=== PATIENT | female | born 1945 | race American Indian/Alaskan Native ===

== ENCOUNTER 2017-06-05 10:29 | Inpatient (IN) | payer MEDICARE ==
[2017-06-05 12:10] LABS: Albumin/Globulin Ratio 0.9 %; BUN/Creatinine Ratio 15.33; Bilirubin,Total 0.7 mg/dL (0.1-1.2); Calcium 9.2 mg/dL (8.4-10.2); Chloride 101.6 mmol/L (98-107); Potassium 4.5 mmol/L (3.6-5.0); Total Protein 8.3 g/dL (6.3-8.2)
[2017-06-05 12:13] LABS: Basophils % (Auto) 0.7 % (0.0-1.8); Eosinophils % (Auto) 0.6 % (0.0-4.3); Hematocrit 40.2 % (30.3-42.9); Hemoglobin 13.1 gm/dl (10.1-14.3); Mean Corpuscular HGB Conc 33 % (30-34); Mean Corpuscular Hemoglobin 28 pg (28-32); Mean Corpuscular Volume 86 fl (79-97); Platelet Count 111 K/mm3 (140-440); Red Cell Distribution Width 15.3 % (13.2-15.2); White Blood Count 6.2 K/mm3 (4.5-11.0)
--- NOTE | 2017-06-05 19:24 | Emergency Department Report ---
HPI - General Chief Complaint: Upper Respiratory Infection Time Seen by Provider: 06/05/17 19:08 - HPI HPI: Room 6 The patient is a 71-year-old female presenting with chief complaint of URI symptoms and chest pain. The patient is currently at the [facility] for detox from morphine and Xanax. The patient states she originally came to the ED for evaluation of her cold like symptoms and diabetic neuropathy pain. The patient states for the past 4 days she's had body aches chills or cough productive of yellow sputum and rhinorrhea. Patient also complains of pain and numbness in both feet from her diabetic neuropathy making it difficult to walk. The patient states she attempted to elope secondary to prolonged wait time and [place] she developed exertional left-sided chest pain described as sharp in nature associated with shortness of breath and diaphoresis. Patient denies nausea or vomiting. The patient states she still having chest pain and uses a score of 10/10. Patient has a history of a CABG approximately 2 years ago Location: [see above] Duration: [see above] Quality: Sharp Severity: 10/10 Modifying factors: [see above] Context: [see above] Mode of transportation: [not driving] ED Past Medical Hx - Past Medical History Previous Medical History?: Yes Hx Hypertension: Yes Hx Heart Attack/AMI: Yes (CABG) Hx Diabetes: Yes - Surgical History Past Surgical History?: Yes Additional Surgical History: hernia; CABG - Family History Family history: no significant - Social History Smoking Status: Current Every Day Smoker (1/2 pack per day) Substance Use Type: Prescribed, Other (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) - Medications Home Medications: Home Medications Medication Instructions Recorded Confirmed Last Taken Type Unobtainable 06/05/17 06/05/17 Unknown History ED Review of Systems ROS: Stated complaint: COUGH/WEAKNESS Other details as noted in HPI Comment: All other systems reviewed and negative Constitutional: diaphoresis Eyes: denies: eye pain, eye discharge, vision change ENT: denies: ear pain, throat pain Respiratory: cough, shortness of breath Cardiovascular: chest pain Endocrine: no symptoms reported Gastrointestinal: denies: abdominal pain, nausea, diarrhea Genitourinary: denies: urgency, dysuria, discharge Musculoskeletal: denies: back pain, joint swelling, arthralgia Skin: denies: rash, lesions Neurological: denies: headache, weakness, paresthesias Psychiatric: denies: anxiety, depression Hematological/Lymphatic: denies: easy bleeding, easy bruising Physical Exam - Physical Exam Vital Signs: Vital Signs 06/05/17 06/05/17 06/05/17 10:36 10:43 19:09 Temperature 97.5 F L 97.5 F L Pulse Rate 78 78 80 Respiratory 16 16 Rate Blood Pressure 169/100 Blood Pressure 169/100 159/86 [Right] O2 Sat by Pulse 97 100 Oximetry Physical Exam: GENERAL: The patient is well-developed well-nourished female lying on stretcher not appearing to be in acute distress. [] HEENT: Normocephalic. Atraumatic. Extraocular motions are intact. Patient has moist mucous membranes. NECK: Supple. Trachea midline CHEST/LUNGS: Clear to auscultation. There is no respiratory distress noted. HEART/CARDIOVASCULAR: Regular. There is no tachycardia. There is no gallop rub or murmur. ABDOMEN: Abdomen is soft, nontender. Patient has normal bowel sounds. There is no abdominal distention. SKIN: There is no rash. There is no edema. There is no diaphoresis. NEURO: The patient is awake, alert, and oriented. The patient is cooperative. The patient has normal speech MUSCULOSKELETAL: There is no evidence of acute injury. ED Course Vital Signs 06/05/17 06/05/17 06/05/17 10:36 10:43 19:09 Temperature 97.5 F L 97.5 F L Pulse Rate 78 78 80 Respiratory 16 16 Rate Blood Pressure 169/100 Blood Pressure 169/100 159/86 [Right] O2 Sat by Pulse 97 100 Oximetry ED Medical Decision Making - Lab Data Result diagrams: 06/05/17 11:22 06/05/17 11:22 Laboratory Tests 06/05/17 06/05/17 06/05/17 10:43 11:22 11:22 WBC 6.2 RBC 4.70 Hgb 13.1 Hct 40.2 MCV 86 MCH 28 MCHC 33 RDW 15.3 H Plt Count 111 L Lymph % (Auto) 23.6 Jay % (Auto) 9.0 H Eos % (Auto) 0.6 Baso % (Auto) 0.7 Lymph # 1.5 Jay # 0.6 Eos # 0.0 Baso # 0.0 Seg Neutrophils % 66.1 Seg Neutrophils # 4.1 Sodium 142 Potassium 4.5 Chloride 101.6 Carbon Dioxide 26 Anion Gap 19 BUN 23 H Creatinine 1.5 H Estimated GFR 42 BUN/Creatinine Ratio 15.33 Glucose 81 POC Glucose 88 Calcium 9.2 Total Bilirubin 0.70 AST 79 H ALT 27 Alkaline Phosphatase 95 Total Creatine Kinase CK-MB (CK-2) CK-MB (CK-2) Rel Index Troponin T Total Protein 8.3 H Albumin 4.0 Albumin/Globulin Ratio 0.9 Lipase 106 H Urine Bilirubin Urine RBC (Auto) U Epithel Cells (Auto) 06/05/17 06/05/17 19:40 19:40 WBC RBC Hgb Hct MCV MCH MCHC RDW Plt Count Lymph % (Auto) Jay % (Auto) Eos % (Auto) Baso % (Auto) Lymph # Jay # Eos # Baso # Seg Neutrophils % Seg Neutrophils # Sodium Potassium Chloride Carbon Dioxide Anion Gap BUN Creatinine Estimated GFR BUN/Creatinine Ratio Glucose POC Glucose Calcium Total Bilirubin AST ALT Alkaline Phosphatase Total Creatine Kinase 248 H CK-MB (CK-2) 3.3 CK-MB (CK-2) Rel Index 1.3 Troponin T < 0.010 Total Protein Albumin Albumin/Globulin Ratio Lipase Urine Bilirubin Neg Urine RBC (Auto) < 1.0 U Epithel Cells (Auto) 1.0 - EKG Data -: EKG Interpreted by Me EKG shows normal: sinus rhythm Rate: normal - EKG Data When compared to previous EKG there are: previous EKG unavailable Interpretation: nonspecific ST-T wave kashif (biphasic T-wave in lead V2) - Radiology Data Radiology results: image reviewed (chest x-ray) interpreted by me: Chest x-ray-no focal infiltrates, no pneumothorax - Differential Diagnosis ACS, GERD, pericarditis, pneumonia Critical care attestation.: If time is entered above; I have spent that time in minutes in the direct care of this critically ill patient, excluding procedure time. ED Disposition Clinical Impression: Chest pain, URI (upper respiratory infection) Disposition: OP ADMIT IP TO THIS HOSP Is pt being admited?: Yes Does the pt Need Aspirin: Yes Condition: Fair Instructions: Chest Pain (ED) Referrals: PRIMARY CARE, [Primary Care Provider] - 3-5 Days Time of Disposition: 20:27 (hospitalist paged)
[2017-06-05] MEDS ORDERED: FLEXERIL PO ONE (19:27)
[2017-06-05] MEDS ORDERED: NITRO-BID 2% TP ONE (19:27)
[2017-06-05] MEDS ORDERED: ASPIRIN PO ONE (19:27)
--- NOTE | 2017-06-05 19:53 | XRay Report ---
FINAL REPORT PROCEDURE: XR CHEST 1V AP TECHNIQUE: Chest radiograph anteroposterior view. CPT 72159 HISTORY: chest pain COMPARISON: No prior studies are available for comparison. FINDINGS: Patient's chin partially obscures the lung apices. Mild linear atelectasis is seen at the left lung base. Patient has had prior cardiac surgery. The heart is normal in size. There is no focal infiltrate, pneumothorax or pleural effusion. IMPRESSION: Mild linear atelectasis is seen at the left lung base.
[2017-06-05 20:15] LABS: Creatine Kinase MB 3.3 ng/mL (0.0-4.0)
[2017-06-05 20:16] LABS: Creatine Kinase 248 units/L (30-135)
[2017-06-05 20:21] LABS: Bacteria,Urine 1+ /HPF (Negative); Bilirubin,Urine NEG (Negative); Blood,Urine SM (Negative); Ketones,Urine TR mg/dL (Negative); Leukocyte Esterase,Urine NEG (Negative); Mucus,Urine FEW /HPF; Nitrite,Urine NEG (Negative); Protein,Urine <15 mg/dL mg/dL (Negative); RBC,Urine < 1.0 /HPF (0.0-6.0); Urobilinogen,Urine < 2.0 mg/dL (<2.0)
[2017-06-05] MEDS ORDERED: NEURONTIN PO ONE ×2 (22:14→22:15)
[2017-06-05] MEDS ORDERED: MILK OF MAGNESIA PO PRN (23:14)
[2017-06-05] MEDS ORDERED: DULCOLAX PR PRN (23:14)
[2017-06-05] MEDS ORDERED: TYLENOL PO PRN (23:14)
[2017-06-05] MEDS ORDERED: ZOFRAN IV PRN (23:14)
--- NOTE | 2017-06-05 23:17 | History and Physical Report ---
History of Present Illness Date of examination: 06/05/17 History of present illness: 71-year-old lady with a history of hypertension, diabetes, continue by neuropathy, coronary artery disease comes emergency room with complaints of chest pain. Pain is in the left chest which she describes as sharp pain, constant in nature lasting for 30 minutes, intensity 5/10, no radiation, she cannot identify exacerbating event factors. She had a stress test 2 months ago which was negative. Complain of worsening burning of her feet Review Of Systems: Constitutional: no weight loss Ears, eyes, nose, mouth and throat: no nasal congestion, no nasal discharge, no sinus pressure, blurry vision, diplopia Neck: No neck pain or rigidity. Cardiovascular: no orthopnea, palpitations Respiratory: No shortness of breath, cough Gastrointestinal: abdominal pain, hematochezia Genitourinary : no dysuria, frequency , hematuria Musculoskeletal: no muscle ache Integumentary: no rash, no pruritis Neurological: no parathesias, focal weakness Endocrine: no cold or heat intolerance, no polyuria or polydipsia Hematologic/Lymphatic: no easy bruising, no easy bleeding, no gland swelling Allergic/Immunologic: no urticaria, no angioedema. PAST MEDICAL HISTORY:hypertension, diabetes, continue by neuropathy, coronary artery disease PAST SURGICAL HISTORY: CABG, hernia repair FAMILY HISTORY:hypertension SOCIAL HISTORY: Smokes half pack a day, currently in detox program for Prescription medicine, no drug use Medications and Allergies Allergies Allergy/AdvReac Type Severity Reaction Status Date / Time No Known Allergies Allergy Verified 06/05/17 23:22 Home Medications Medication Instructions Recorded Confirmed Last Taken Type Cymbalta 60 mg PO DAILY 06/05/17 06/05/17 Unknown History Gabapentin 300 mg PO TID 06/05/17 06/05/17 Unknown History Geodon 40 mg PO DAILY 06/05/17 06/05/17 Unknown History Lisinopril 10 mg PO DAILY 06/05/17 06/05/17 Unknown History Metoprolol 50 mg PO DAILY 06/05/17 06/05/17 Unknown History Suboxone 8 mg-2 mg SL Film 0.5 tab PO TID 06/05/17 06/05/17 Unknown History Exam - Physical Exam Narrative exam: Gen. appearance: Patient lying in bed in no acute distress HEENT: Normocephalic/atraumatic, pupils equal round reactive to light, extra alkaline movement intact, no scleral icterus, no JVD or thyromegaly or nodule, neck is supple, mucous membrane moist, no erythema or exudate Heart: S1-S2, regular rate and rhythm Lungs: Clear to auscultation bilateral breathing comfortable Abdomen: Positive bowel sounds, nontender, nondistended, no organomegaly Extremities: No edema, cyanosis, clubbing Neuro:: Oriented 3 , cranial nerves II-12 intact, speech, motor intact Skin: No rash, nodules, warm dry - Constitutional Vitals: Temp Pulse Resp BP Pulse Ox 97.5 F L 78 16 186/87 96 06/05/17 10:43 06/05/17 21:51 06/05/17 21:51 06/05/17 21:51 06/05/17 21:51 Results - Labs CBC & Chem 7: 06/05/17 11:22 06/05/17 11:22 Labs: Abnormal lab results 06/05/17 06/05/17 06/05/17 Range/Units 11:22 11:22 19:40 RDW 15.3 H (13.2-15.2) % Plt Count 111 L (140-440) K/mm3 [place] % (Auto) 9.0 H (0.0-7.3) % BUN 23 H (7-17) mg/dL Creatinine 1.5 H (0.7-1.2) mg/dL AST 79 H (5-40) units/L Total Creatine Kinase 248 H (30-135) units/L Total Protein 8.3 H (6.3-8.2) g/dL Lipase 106 H (13-60) units/L - Imaging and Cardiology EKG: image reviewed Chest x-ray: image reviewed Assessment and Plan Assessment Unstable angina Coronary artery disease Hypertension Thrombocytopenia Plan Admit to medicine Check cardiac enzymes, consult cardiology Continue appropriate outpatient medication Patient in detox program, no narcotics DVT prophylaxis
[2017-06-06 00:15] LABS: Creatine Kinase 197 units/L (30-135); Creatine Kinase MB 2.6 ng/mL (0.0-4.0)
[2017-06-06] MEDS ORDERED: APRESOLINE IV PRN ×2 (02:29→08:16)
[2017-06-06 05:11] LABS: Basophils % (Auto) 1.1 % (0.0-1.8); Eosinophils % (Auto) 1.6 % (0.0-4.3); Hematocrit 37.5 % (30.3-42.9); Hemoglobin 12.6 gm/dl (10.1-14.3); Mean Corpuscular HGB Conc 34 % (30-34); Mean Corpuscular Hemoglobin 29 pg (28-32); Mean Corpuscular Volume 85 fl (79-97); Platelet Count 105 K/mm3 (140-440); Red Cell Distribution Width 15.3 % (13.2-15.2); White Blood Count 5.3 K/mm3 (4.5-11.0)
[2017-06-06] MEDS: PERCOCET 5/325 PO PRN ×2 (05:18→16:35)
[2017-06-06] MEDS: NEURONTIN PO SCH ×4 (05:18→21:27)
[2017-06-06 05:22] LABS: BUN/Creatinine Ratio 14.66; Calcium 9.4 mg/dL (8.4-10.2); Chloride 99.8 mmol/L (98-107); Potassium 3.4 mmol/L (3.6-5.0)
[2017-06-06 05:32] LABS: Creatine Kinase MB 2.3 ng/mL (0.0-4.0)
[2017-06-06 05:34] LABS: Creatine Kinase 151 units/L (30-135)
[2017-06-06] MEDS ORDERED: D50W (25GM) Syringe IV PRN (08:21)
--- NOTE | 2017-06-06 08:23 | Progress Note ---
Assessment and Plan Assessment and plan: 71F with pmh of htn, DM, CAD, tobacco abuse presented with chest pain and Dm neuropathy pain in both legs, The patient is currently at the [facility] for detox from morphine and Xanax. T Chest pain ACS ruled out, trop neg x 3, CXR negative Most likely secondary to hypertensive urgency, cardiology consult, obtain stress test and echo. Optimize blood pressure meds. 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 DM was ruled out, Glucose is normal, states that she does not have DM Peripheral Neuropathy -gabapentin TID Hypokalemia replete PO Thrombocytopenia Mild and chronic, continue to monitor History Interval history: She states that chest pain and lower extremity pain has now resolved Hospitalist Physical - Physical exam Narrative exam: General: Patient appears well in no distress HEENT: MMM, EOMI cardiac: S1-S2 heard lungs: clear to auscultation, abdomen: soft, nontender, nondistended bowel sounds positive extremities: no edema clubbing or cyanosis Skin: no rash or lesion Neuro: no focal deficit Psych: appropriate behavior and mood, cognition intact - Constitutional Vitals: Temp Pulse Resp BP Pulse Ox 97.5 F L 74 18 171/89 97 06/06/17 07:43 06/06/17 07:42 06/06/17 07:42 06/06/17 07:42 06/06/17 07:42 Results - Labs CBC & Chem 7: 06/06/17 04:22 06/06/17 04:22 Labs: Laboratory Last Values WBC 5.3 K/mm3 (4.5-11.0) 06/06/17 04:22 RBC 4.40 M/mm3 (3.65-5.03) 06/06/17 04:22 Hgb 12.6 gm/dl (10.1-14.3) 06/06/17 04:22 Hct 37.5 % (30.3-42.9) 06/06/17 04:22 MCV 85 fl (79-97) 06/06/17 04:22 MCH 29 pg (28-32) 06/06/17 04:22 MCHC 34 % (30-34) 06/06/17 04:22 RDW 15.3 % (13.2-15.2) H 06/06/17 04:22 Plt Count 105 K/mm3 (140-440) L 06/06/17 04:22 Lymph % (Auto) 34.3 % (13.4-35.0) 06/06/17 04:22 Story % (Auto) 9.8 % (0.0-7.3) H 06/06/17 04:22 Eos % (Auto) 1.6 % (0.0-4.3) 06/06/17 04:22 Baso % (Auto) 1.1 % (0.0-1.8) 06/06/17 04:22 Lymph # 1.8 K/mm3 (1.2-5.4) 06/06/17 04:22 Story # 0.5 K/mm3 (0.0-0.8) 06/06/17 04:22 Eos # 0.1 K/mm3 (0.0-0.4) 06/06/17 04:22 Baso # 0.1 K/mm3 (0.0-0.1) 06/06/17 04:22 Seg Neutrophils % 53.2 % (40.0-70.0) 06/06/17 04:22 Seg Neutrophils # 2.8 K/mm3 (1.8-7.7) 06/06/17 04:22 Sodium 143 mmol/L (137-145) 06/06/17 04:22 Potassium 3.4 mmol/L (3.6-5.0) L D 06/06/17 04:22 Chloride 99.8 mmol/L (98-107) 06/06/17 04:22 Carbon Dioxide 25 mmol/L (22-30) 06/06/17 04:22 Anion Gap 22 mmol/L 06/06/17 04:22 BUN 22 mg/dL (7-17) H 06/06/17 04:22 Creatinine 1.5 mg/dL (0.7-1.2) H 06/06/17 04:22 Estimated GFR 42 ml/min 06/06/17 04:22 BUN/Creatinine Ratio 14.66 % 06/06/17 04:22 Glucose 76 mg/dL (65-100) 06/06/17 04:22 POC Glucose 88 (70-105) 06/05/17 10:43 Calcium 9.4 mg/dL (8.4-10.2) 06/06/17 04:22 Total Bilirubin 0.70 mg/dL (0.1-1.2) 06/05/17 11:22 AST 79 units/L (5-40) H 06/05/17 11:22 ALT 27 units/L (7-56) 06/05/17 11:22 Alkaline Phosphatase 95 units/L (35-129) 06/05/17 11:22 Total Creatine Kinase 151 units/L (30-135) H 06/06/17 04:22 CK-MB (CK-2) 2.3 ng/mL (0.0-4.0) 06/06/17 04:22 CK-MB (CK-2) Rel Index 1.5 (0-4) 06/06/17 04:22 Troponin T < 0.010 ng/mL (0.00-0.029) 06/06/17 04:22 Total Protein 8.3 g/dL (6.3-8.2) H 06/05/17 11:22 Albumin 4.0 g/dL (3.9-5) 06/05/17 11:22 Albumin/Globulin Ratio 0.9 % 06/05/17 11:22 Lipase 106 units/L (13-60) H 06/05/17 11:22 Urine Color Colorless (Yellow) 06/05/17 19:40 Urine Turbidity Clear (Clear) 06/05/17 19:40 Urine pH 5.0 (5.0-7.0) 06/05/17 19:40 Ur Specific [place] 1.019 (1.003-1.030) 06/05/17 19:40 Urine Protein <15 mg/dl mg/dL (Negative) 06/05/17 19:40 Urine Glucose (UA) Neg mg/dL (Negative) 06/05/17 19:40 Urine Ketones Tr mg/dL (Negative) 06/05/17 19:40 Urine Blood Sm (Negative) 06/05/17 19:40 Urine Nitrite Neg (Negative) 06/05/17 19:40 Urine Bilirubin Neg (Negative) 06/05/17 19:40 Urine Urobilinogen < 2.0 mg/dL (<2.0) 06/05/17 19:40 Ur Leukocyte Esterase Neg (Negative) 06/05/17 19:40 Urine WBC (Auto) 1.0 /HPF (0.0-6.0) 06/05/17 19:40 Urine RBC (Auto) < 1.0 /HPF (0.0-6.0) 06/05/17 19:40 U Epithel Cells (Auto) 1.0 /HPF (0-13.0) 06/05/17 19:40 Urine Bacteria (Auto) 1+ /HPF (Negative) 06/05/17 19:40 Urine Mucus Few /HPF 06/05/17 19:40
[2017-06-06] MEDS ORDERED: K-DUR PO ONE (08:45)
[2017-06-06] MEDS: CYMBALTA PO SCH (09:37)
[2017-06-06] MEDS: DIOVAN PO SCH ×2 (09:38→21:26)
[2017-06-06] MEDS: GEODON PO SCH (09:39)
[2017-06-06] MEDS ORDERED: TOPROL XL PO SCH (10:00)
[2017-06-06] MEDS ORDERED: LOVENOX SUB-Q SCH ×3 (10:00→22:00)
[2017-06-06] MEDS: SUBOXONE 2 MG-0.5 MG SL SCH ×3 (10:00→20:36)
[2017-06-06] MEDS ORDERED: NOVOLOG SUB-Q SCH (11:30)
--- NOTE | 2017-06-06 15:46 | Consultation ---
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 She has a history of, status post CABG. She claims that she had a stress test in March 2017 without being able to specify the findings. While walking yesterday, she claims that she developed a sharp precordial chest pain associated with shortness of breath. She also complains of cough productive of thick yellowish sputum lately. Past History Past Medical History: CAD, cancer (breast cancer), diabetes, hypertension Past Surgical History: CABG (2 yrs ago in [place], [place]), Other (left breast lumpectomy for cancer.) Social history: denies: smoking, alcohol abuse Family history: denies: CAD Medications and Allergies Allergies Allergy/AdvReac Type Severity Reaction Status Date / Time No Known Allergies Allergy Verified 06/05/17 23:22 Home Medications Medication Instructions Recorded Confirmed Last Taken Type Cymbalta 60 mg PO DAILY 06/05/17 06/05/17 Unknown History Gabapentin 300 mg PO TID 06/05/17 06/05/17 Unknown History Geodon 40 mg PO DAILY 06/05/17 06/05/17 Unknown History Lisinopril 10 mg PO DAILY 06/05/17 06/05/17 Unknown History Metoprolol 50 mg PO DAILY 06/05/17 06/05/17 Unknown History Suboxone 8 mg-2 mg SL Film 0.5 tab PO TID 06/05/17 06/05/17 Unknown History Active Meds: Active Medications Acetaminophen (Tylenol) 650 mg PO Q4H PRN PRN Reason: Pain MILD(1-3)/Fever >100.5/WALKER Bisacodyl (Dulcolax) 10 mg MN QDAY PRN PRN Reason: Constipation unrelieved by MOM Buprenorphine HCl (Suboxone 2 Mg-0.5 Mg) 1 each SL TID [facility] Last Admin: 06/06/17 10:00 Dose: 1 each Duloxetine HCl (Cymbalta) 60 mg PO QDAY [facility] Last Admin: 06/06/17 09:37 Dose: 60 mg Enoxaparin Sodium (Lovenox) 30 mg SUB-Q DAILY@2200 SOFYA Gabapentin (Neurontin) 300 mg PO Q8HR [facility] Last Admin: 06/06/17 13:52 Dose: 300 mg Gabapentin (Neurontin) 100 mg PO Q8HR [facility] Last Admin: 06/06/17 13:51 Dose: 100 mg Hydralazine HCl (Apresoline) 10 mg IV Q4HR PRN PRN Reason: BP >160/100 Magnesium Hydroxide (Milk Of Magnesia) 30 ml PO Q4H PRN PRN Reason: Constipation Metoprolol Succinate (Toprol Xl) 50 mg PO QDAY [facility] Last Admin: 06/06/17 09:37 Dose: 50 mg Ondansetron HCl (Zofran) 4 mg IV Q8H PRN PRN Reason: N/V unrelieved by Reglan Oxycodone/Acetaminophen (Percocet 5/325) 1 tab PO Q6H PRN PRN Reason: Pain, Moderate (4-6) Last Admin: 06/06/17 05:18 Dose: 1 tab Valsartan (Diovan) 160 mg PO BID [facility] Last Admin: 06/06/17 09:38 Dose: 160 mg Ziprasidone (Geodon) 40 mg PO DAILY [facility] Last Admin: 06/06/17 09:39 Dose: 40 mg Review of Systems Constitutional: no fever, no chills Ears, nose, mouth and throat: no ear pain, no ear discharge, no sore throat Cardiovascular: chest pain, shortness of breath, no palpitations, no lightheadedness Respiratory: cough with sputum, shortness of breath, no hemoptysis Gastrointestinal: no abdominal pain, no nausea, no vomiting, no diarrhea, no constipation Genitourinary Female: no dysuria, no urinary frequency Rectal: no pain, no bleeding Musculoskeletal: no neck stiffness, no neck pain, no myalgias Integumentary: no rash, no pruritis Neurological: no weakness, no parathesias, no numbness, no headaches Hematologic/Lymphatic: no easy bruising, no easy bleeding Allergic/Immunologic: no urticaria, no wheezing Physical Examination Vital Signs Last Vital Signs Temp 97.8 F 06/06/17 15:47 Pulse 72 06/06/17 09:38 Resp 20 06/06/17 09:30 BP 146/75 06/06/17 09:38 Pulse Ox 97 06/06/17 07:42 General appearance: no acute distress HEENT: Positive: EOMI, Normocephaly, Mucus Membranes Moist Neck: Positive: neck supple, trachea midline Cardiac: Positive: Reg Rate and Rhythm, S1/S2 Lungs: Positive: clear to auscultation Neuro: Positive: Grossly Intact Abdomen: Positive: Soft, Active Bowel Sounds. Negative: Tender Skin: Positive: Clear. Negative: Rash Musculoskeletal: Normal Range of Motion Extremities: Present: normal. Absent: edema Results 06/06/17 04:22 06/06/17 04:22 Cardiac Enzymes 06/06/17 06/06/17 Range/Units 00:10 04:22 CK-MB (CK-2) 2.6 2.3 (0.0-4.0) ng/mL CBC 06/06/17 Range/Units 04:22 WBC 5.3 (4.5-11.0) K/mm3 RBC 4.40 (3.65-5.03) M/mm3 Hgb 12.6 (10.1-14.3) gm/dl Hct 37.5 (30.3-42.9) % Plt Count 105 L (140-440) K/mm3 Lymph # 1.8 (1.2-5.4) K/mm3 [place] # 0.5 (0.0-0.8) K/mm3 Eos # 0.1 (0.0-0.4) K/mm3 Baso # 0.1 (0.0-0.1) K/mm3 Comprehensive Metabolic Panel 06/06/17 Range/Units 04:22 Sodium 143 (137-145) mmol/L Potassium 3.4 L D (3.6-5.0) mmol/L Chloride 99.8 (98-107) mmol/L Carbon Dioxide 25 (22-30) mmol/L BUN 22 H (7-17) mg/dL Creatinine 1.5 H (0.7-1.2) mg/dL Glucose 76 (65-100) mg/dL Calcium 9.4 (8.4-10.2) mg/dL - Imaging and Cardiology EKG: image reviewed EKG interpretations - Telemetry EKG Rhythm: Sinus Rhythm - EKG Sinus rhythms and dysrhythmias: sinus rhythm Repolarization changes or abnormalities: Q-T interval prolongation Assessment and Plan The patient has maintained that she will not undergo any further stress testing here. Obtain report of her recent stress test from [place], [place]. I will optimize her anti-ischemic and antihypertensive regimen. Increase beta anand dose and add oral nitrates. If she is doing well tomorrow without recurrent chest pain, she may be discharged home to follow up with her hydroelectric plant electrician in [place], [place]. - Patient Problems (1) Chest pain Current Visit: Yes Status: Acute Qualifiers: Chest pain type: C Ischemic chest pain type: I (2) Accelerated hypertension Current Visit: Yes Status: Acute (3) CAD (coronary artery disease) Current Visit: Yes Status: Acute Qualifiers: Coronary Disease-Associated Artery/Lesion type: nondalton artery [place] vs. transplanted heart: N Associated angina: A (4) Hx of CABG Current Visit: Yes Status: Chronic (5) Diabetes mellitus Current Visit: Yes Status: Chronic Qualifiers: Diabetes mellitus type: type 2 Diabetes mellitus complication status: D Diabetes mellitus complication detail: D Diabetic retinopathy severity: D Proliferative retinopathy type: P Diabetes mellitus macular edema: D Diabetes mellitus intermediate teacher insulin use: D Laterality: L Chronic kidney disease stage: C
[2017-06-06] MEDS: ZESTRIL PO SCH (16:34)
[2017-06-06] MEDS: IMDUR PO SCH (16:35)
[2017-06-07] MEDS: PERCOCET 5/325 PO PRN (00:50)
--- NOTE | 2017-06-07 03:36 | Admit Criteria Form ---
Admission Criteria Documentation: CARDIOLOGY GRG Clinical Indications for Admission to Inpatient Care ([place]/check or initial the applicable condition/criteria) Hospital admission is needed for appropriate care of the patient because of ANY ONE of the following: [ ] I. Hemodynamic instability as indicated by ALL of the following (1)(2)(3) (4)(5)(6)(7)(8)(9)(10) [ ]a) Vital sign abnormality not readily corrected by appropriate treatment with 12-24 hours for ANY ONE: [ ]i) Hypotension that persists despite appropriate treatment (eg, volume repletion) [ ]ii) Tachycardiathat persists despite appropriate tx ( e.g., analgesia, fluids, sedation as indicated [ ]iii) Orthostatic vital sign changes that persists despite appropriate treatment (eg, volume repletion) [ ]b) Vital sign abnormailty that is severe indicated by ANY ONE of the following: [ ]i) Inadequate perfusion indicated by ANY ONE of the following: [ ] 1) Lactic acidosis (> 2 mmol/L) [ ] 2) New abnormal capillary refill (> 3 seconds) [ ] 3) Reduced urine output [ ] 4) New altered mental status [ ] 5) Myocardial Ischemia [ ] 6) Other metabolic acidosis (arterial pH <7.35 ) not otherwise explained. [ ]ii) Mean arterial pressure[A] less than 60 mm Hg [ ]iii) Mean arterial pressure[A] less than 70 mm Hg after 30 minutes of appropriate treatment (eg, fluid resuscitation) [ ]iv) Sustained heart rate greater than 120 beats per minute in adult or child 6 years or older[B] [ ]v) IV inotropic or vasopressor medication required to maintain adequate blood pressure or perfusion [ ] II. Severe heart failure as indicated by ANY ONE of the following(17)(18) [ ]a) Respiratory distress [ ]b) Hypotension [ ]c) Debilitating anasarca refractory to therapy (eg, tissue breakdown with infection)[C](19) [ ]d) Cardiac arrhythmias of immediate concern [ ]e) Myocardial ischemia [ ] III. Cardiac arrhythmias or findings of immediate concern indicated by ANY ONE of the following (21)(22): [ ] a) Heart rhythms that are inherently dangerous or unstable indicated by ANY ONE of the following (23)(24)(25): [ ] i) Resuscitated ventricular fibrillation or cardiac arrest [ ] ii) Ventricular escape rhythm [ ] iii) Sustained ventricular tachycardia (30 seconds or more of ventricular rhythm at greater than 100 beats per minute) [ ] iv) Nonsustained ventricular tachycardia and ANY ONE of the following: [ ] 1) Suspected cardiac ischemia as cause or consequence of ventricular tachycardia [ ] 2) Acute myocarditis [ ] b) Unstable cardiac conduction defects indicated by ANY ONE of the following(25)(26)(27) [ ] i) Type II second-degree atrioventricular block [ ]ii) Third-degree atrioventricular block [ ]iii) New-onset left bundle branch block with suspected myocardial ischemia [ ]c) Any heart rhythm and ANY ONE of the following (23)(24)(28)(29) (30) [ ] i) Continuous long-term ECG monitoring needed (e.g., initiation of drug requiring monitoring for more than 24 hours) [ ] ii) Patient has automatic implanted cardioverter defibrillator that is repeatedly firing, malfunctioning, or in need of immediate adjustment of settings beyond the scope of ambulatory or observation care [ ]d) Heart rhythms of concern due to ANY ONE of the following: [ ] i) Hypotension [ ] ii) Respiratory distress [ ] iii) Association with other significant symptoms (e.g., bradycardia with syncope or ongoing dizziness, supraventricular tachycardia with chest pain (28)(29)(31) [ ] IV. Monitoring for cardiac contusion beyond the scope of observation care needed [A](32)(33)(34) [ ] V. Surgical or device complication (e.g., valve replacement complication , ICD disfunction or pacemaker dysfunction) (49)(50)(51)(52)(53)(54) [ ] . Inpatient palliative care needed. [F](51)(52) Also use Inpatient Palliative Care Criteria [ ] VII. Nonbacterial thrombotic (marantic) endocarditis(43)(44)(55)(56)(57) [X ] VIII. Cardiology condition, symptom, or finding for which emergency and observation care has failed or are not considered appropriate. [ ] IX. Acute valvular disease requiring inpatient as indicated by ANY ONE of the following (40)(41) [ ]a) Acute valvular regurgitation (42) [ ]b) Noninfectious valvulitis (43)(44) [ ]c) Obstructive valve thrombosis (45)(46) [ ]d) Paravalvular leak(47)(48) [ ]e) Other significant valvular disorder remaining after emergency or observation level of care (as appropriate) [ ]X. Pericardial disease requiring inpatient treatment as indicated by ANY ONE of the following (35)(36)(37)(38) [ ]a) Suspected tamponade [ ]b) Hemopericardium [ ]c) Other significant pericardial disorder remaining after emergency or observation level of care (as appropriate)(39) [ ] XI. Cardiac ischemia beyond scope of emergency and observation care. [ ] XII. Cyanotic heart disease requiring inpatient care as indicated by 1 or more of the following(58)(59)(60): [ ]a) Acute onset of hypoxemia [ ]b) Exacerbation [ ] XIII. Hypertension requiring inpatient treatment as indicated by ANYONE of the following(11)(12)(13)(14): [ ]a) Severe hypertension (SBP greater than 180 mm Hg or DBP greater than 110 mm Hg, or greater than the 95th percentile for age, gender, and height in pediatric patients) that cannot be controlled (eg, to SBP less than 160 mm Hg and DBP less than 100 mm Hg) by emergency department or observation care treatment(15) [ ]b) Acute end organ damage secondary to hypertension (SBP greater than 140 mm Hg or DBP greater than 90 mm Hg) as indicated by ANYONE of the following: [ ] i) Hypertensive encephalopathy (eg, Altered mental status)(16) [ ] ii) Cerebral infarction [ ] iii) Intracranial hemorrhage [ ] iv) Myocardial ischemia or infarction [ ] v) Heart failure (eg, pulmonary edema) [ ] vi) Aortic dissection [ ] vii) Increased creatinine (new) with reduction of more than 50% in estimated glomerular filtration rate from baseline [ ] viii) Papilledema [ ] ix) Retinal hemorrhage [ ] x) Microangiopathic hemolytic anemia [ ] xi) Seizure [ ] xii) Other significant finding secondary to hypertension [ ] XIV. Complications of transplanted heart indicated by ANY ONE of the following(61): [ ]a) Acute graft rejection requiring inpatient management (eg, intravenous imunosuppression)(62)(63) [ ]b) Acute graft heart failure indicated by ANY ONE of the following(64): [ ] i) Hemodynamic instability [ ] ii) Cardiac arrhythmias of immediate concern [ ] iii) Pulmonary edema that is very severe (eg, mechanical ventilation needed, imminent or likely, need for 100% oxygen to keep oxygen saturation above 90%) [ ] iv) Pulmonary edema that is persistent as indicated by ALL of the following: [ ] 1) New need for oxygen therapy to keep oxygen saturation above 90 % (or increased FiO2 need from baseline) [ ] 2) Has not improved sufficiently with emergency department or observation care IV diuretics or other heart failure treatments[E]. [ ] iv) Altered mental status that is severe or persistent [ ] iv) Increased creatinine (new on laboratory test) with reduction of more than 50% in estimated glomerular filtration rate from baseline [ ] iv) Progressively (ongoing) rising creatinine (known from past laboratory test) with reduction of more than 25% in estimated glomerular filtration rate from baseline [ ] iv) Acute renal failure [ ] iv) Acute peripheral ischemia (eg, examination shows pulseless, cool, mottled, or cyanotic extremity) [ ] iv) Pulmonary artery catheter monitoring needed [ ] iv) Other sign or symptom of heart failure requiring inpatient treatment (ie, too severe or not responsive to outpatient and observation care treatment) [ ]c) Infection requiring inpatient management (eg, Hemodynamic instability, need for intravenous antimicrobial treatment)(66)(67)(68)(69)(70) [ ]d) Cardiac allograft vasculopathy requiring inpatient management (eg evidence of cardiacischemia)(71) [ ]e) Other complication of transplanted heart (eg, stroke, severe pulmonary hypertension, severe valvular dysfunction) requiring inpatient management(72) The original [employer] content created by [employer] has been revised. The portions of the content which have been revised are identified through the use of italic text or in bold, and [facility] has neither reviewed nor approved the modified material. All other unmodified content is copyright [email or web address]. Please see references footnoted in the original [email or web address] edition 2017 Admission Criteria Met: Yes
[2017-06-07] MEDS: NEURONTIN PO SCH ×2 (05:58→13:31)
[2017-06-07] MEDS: CYMBALTA PO SCH (09:26)
[2017-06-07] MEDS: IMDUR PO SCH (09:28)
[2017-06-07] MEDS: DIOVAN PO SCH (09:28)
[2017-06-07] MEDS: ZESTRIL PO SCH (09:28)
[2017-06-07] MEDS ORDERED: TOPROL XL PO SCH (10:00)
[2017-06-07] MEDS: SUBOXONE 2 MG-0.5 MG SL SCH (10:19)
[2017-06-07] MEDS: GEODON PO SCH (12:25)
[2017-06-07 12:45] VITALS: BP 122/69
--- NOTE | 2017-06-07 13:09 | Discharge Summary ---
Providers - Providers Date of Admission: 06/05/17 23:14 Attending physician: TIESHA PEREZ MD Primary care physician: BONIFACIO JARQUIN MD Hospitalization Condition: Fair Hospital course: 71F with pmh of htn, DM, CAD, tobacco abuse presented with chest pain and Dm neuropathy pain in both legs, The patient is currently at the [facility] for detox from morphine and Xanax. She received gabapentin and clinically improved. ACS was ruled out by 3 sets of negative troponins, she has had a negative chest x-ray, high blood pressure medications were optimized. She was seen in conjunction with cardiology. Her blood pressure meds were optimized. Given that patient had had a recent stress test with her youth director in [facility] she refused stress test here. Therefore she was medically managed and will follow up with her own youth director. Her electrolytes were repleted. Diagnosis Chest pain due to htn urgency Htn urgency CKD stage 2-3 Peripheral Neuropathy Disposition: DC/TX-70 ANOTHER TYPE [facility] Time spent for discharge: 33 minutes Core Measure Documentation - Palliative Care Palliative Care/ Comfort Measures: Not Applicable - Core Measures Any of the following diagnoses?: none Exam - Physical Exam Narrative exam: General: Patient appears well in no distress HEENT: MMM, EOMI cardiac: S1-S2 heard lungs: clear to auscultation, abdomen: soft, nontender, nondistended bowel sounds positive extremities: no edema clubbing or cyanosis Skin: no rash or lesion Neuro: no focal deficit Psych: appropriate behavior and mood, cognition intact - Constitutional Vitals: Temp Pulse Resp BP Pulse Ox 97.0 F L 66 18 122/69 93 06/07/17 11:51 06/07/17 11:51 06/07/17 11:51 06/07/17 11:51 06/07/17 11:51 Plan Follow up with: PRIMARY CAREMD [Primary Care Provider] - 3-5 Days Forms: AMA Form Prescriptions: Cymbalta 60 mg PO DAILY #30 Gabapentin 300 mg PO TID #90 Geodon 40 mg PO DAILY #30 ISOSORBIDE MONOnitrate [Imdur ER] 60 mg PO QDAY #30 tablet Metoprolol Xl [Metoprolol SUCCINATE ER TAB] 100 mg PO QDAY #30 tablet Valsartan [Diovan] 160 mg PO BID #60 tablet
--- NOTE | 2017-06-07 13:14 | Progress Note ---
Assessment and Plan She appears stable from a cardiac standpoint. She may be discharged home on the current regimen to follow-up with her roller [place] within the next one week. - Patient Problems (1) Chest pain Current Visit: Yes Status: Acute Qualifiers: Chest pain type: C Ischemic chest pain type: I (2) Accelerated hypertension Current Visit: Yes Status: Acute (3) CAD (coronary artery disease) Current Visit: Yes Status: Acute Qualifiers: Coronary Disease-Associated Artery/Lesion type: [place] artery [place] vs. transplanted heart: N Associated angina: A (4) Hx of CABG Current Visit: Yes Status: Chronic (5) Diabetes mellitus Current Visit: Yes Status: Chronic Qualifiers: Diabetes mellitus type: type 2 Diabetes mellitus complication status: D Diabetes mellitus complication detail: D Diabetic retinopathy severity: D Proliferative retinopathy type: P Diabetes mellitus macular edema: D Diabetes mellitus director long term care insulin use: D Laterality: L Chronic kidney disease stage: C Subjective Date of service: 06/07/17 Principal diagnosis: CP, Accelerated HTN, CAD, h/o CABG Interval history: She feels fine. No more chest pain. Objective Vital Signs Temp Pulse Resp Resp BP BP Pulse Ox 06/07/17 11:51 97.0 F L 66 18 122/69 93 06/07/17 10:00 94 06/07/17 09:28 63 117/56 06/07/17 09:27 63 117/56 06/07/17 08:29 63 18 117/56 93 06/07/17 04:15 98.2 F 66 114/56 06/07/17 01:50 20 06/07/17 00:52 98.4 F 67 16 105/52 91 06/07/17 00:50 20 06/06/17 21:28 20 06/06/17 21:26 99 H 159/70 06/06/17 20:14 68 06/06/17 19:43 96 06/06/17 19:38 97.7 F 71 18 159/70 92 06/06/17 19:30 20 98 06/06/17 17:35 20 06/06/17 16:35 20 06/06/17 15:48 18 104/51 06/06/17 15:47 97.8 F 104 H - Physical Examination General: No Apparent Distress HEENT: Positive: EOMI, Normocephaly, Mucus Membranes Moist Neck: Positive: neck supple, trachea midline Cardiac: Positive: Reg Rate and Rhythm, S1/S2 Lungs: Positive: clear to auscultation Neuro: Positive: Grossly Intact Abdomen: Positive: Soft, Active Bowel Sounds. Negative: Tender Skin: Positive: Clear. Negative: Rash Musculoskeletal: Normal Range of Motion Extremities: Present: normal. Absent: edema - Imaging and Cardiology EKG: image reviewed - EKG Sinus rhythms and dysrhythmias: sinus rhythm Repolarization changes or abnormalities: Q-T interval prolongation
== END 2017-06-07 14:20 | DRG 305 ==
LOC: ED 10:29 → 4A 23:14
PROVIDERS: ADMIT Internal Medicine; ATTEND Internal Medicine
DX: I16.0 Hypertensive urgency (principal); I25.110 Atherosclerotic heart disease of native coronary artery with unstable angina pectoris; E11.42 Type 2 diabetes mellitus with diabetic polyneuropathy; N18.3 Chronic kidney disease, stage 3 (moderate); I12.9 Hypertensive chronic kidney disease with stage 1 through stage 4 chronic kidney disease, or unspecified chronic kidney disease; E11.22 Type 2 diabetes mellitus with diabetic chronic kidney disease; E87.6 Hypokalemia; D69.6 Thrombocytopenia, unspecified; J06.9 Acute upper respiratory infection, unspecified; F17.200 Nicotine dependence, unspecified, uncomplicated; Z95.1 Presence of aortocoronary bypass graft; I25.2 Old myocardial infarction; Z82.49 Family history of ischemic heart disease and other diseases of the circulatory system; Z79.899 Other long term (current) drug therapy; Z85.3 Personal history of malignant neoplasm of breast
CPT/HCPCS: 36415; 71010; 80048; 80053; 81001; 82550; 82553; 82962; 83690; 84484; 85025; 93005; 93010; 99406; J1650; J2405

== ENCOUNTER 2017-06-13 13:30 | Emergency (ER) | payer MEDICARE ==
[2017-06-13 14:54] LABS: Basophils % (Auto) 0.6 % (0.0-1.8); Eosinophils % (Auto) 1.2 % (0.0-4.3); Hemoglobin 12.3 gm/dl (10.1-14.3); Mean Corpuscular HGB Conc 33 % (30-34); Mean Corpuscular Hemoglobin 29 pg (28-32); Mean Corpuscular Volume 86 fl (79-97); Platelet Count 116 K/mm3 (140-440); Red Blood Count 4.29 M/mm3 (3.65-5.03); Red Cell Distribution Width 15.1 % (13.2-15.2); White Blood Count 3.3 K/mm3 (4.5-11.0)
--- NOTE | 2017-06-13 15:12 | Emergency Department Report ---
ED Psych HPI - General Chief Complaint: Medical Clearance Stated Complaint: MH Time Seen by Provider: 06/13/17 14:54 Source: patient Mode of arrival: Ambulatory - History of Present Illness Initial Comments: 71-year-old female here with request of mental health assessment to return to [place]. Patient denies any complaints. States she been on a [facility] in wants to return to [place] to continue for detox process. She has no fevers chills nausea vomiting. Otherwise would like a mental health assessment. -: Gradual Associated Psychiatric Symptoms: none Quality: constant Improves With: none Worsens With: none Treatments Prior to Arrival: none - Related Data Home Medications Medication Instructions Recorded Confirmed Last Taken Suboxone 8 mg-2 mg SL Film 0.5 tab PO TID 06/05/17 06/08/17 Unknown Previous Rx's Medication Instructions Recorded Last Taken Type Geodon 40 mg PO DAILY #30 06/07/17 Unknown Rx Cymbalta 60 mg PO DAILY #30 06/13/17 Unknown Rx Gabapentin 300 mg PO TID #90 06/13/17 Unknown Rx Allergies Allergy/AdvReac Type Severity Reaction Status Date / Time No Known Allergies Allergy Verified 06/13/17 13:33 ED Review of Systems ROS: Stated complaint: MH Other details as noted in HPI Comment: All other systems reviewed and negative Constitutional: denies: chills, fever Eyes: denies: eye pain, eye discharge, vision change ENT: denies: ear pain, throat pain Respiratory: denies: cough, shortness of breath, wheezing Cardiovascular: denies: chest pain, palpitations Endocrine: no symptoms reported Gastrointestinal: denies: abdominal pain, nausea, diarrhea Genitourinary: denies: urgency, dysuria, discharge Musculoskeletal: denies: back pain, joint swelling, arthralgia Skin: denies: rash, lesions Neurological: denies: headache, weakness, paresthesias Psychiatric: denies: anxiety, depression Hematological/Lymphatic: denies: easy bleeding, easy bruising ED Past Medical Hx - Past Medical History Hx Hypertension: Yes Hx Heart Attack/AMI: No Hx Congestive Heart Failure: Yes Hx Diabetes: Yes Hx Deep Vein Thrombosis: No Hx Pulmonary Embolism: No Hx Liver Disease: No Hx Arthritis: Yes (osteoarthritis) Hx Asthma: No Hx COPD: Yes Hx Tuberculosis: No Hx HIV: No - Surgical History Hx Coronary Stent: Yes Hx Open Heart Surgery: No Hx Pacemaker: No Hx Internal Defibrillator: No Hx Cholecystectomy: No Hx Appendectomy: No Hx Breast Surgery: No Additional Surgical History: hernia; CABG - Family History Family history: no significant - Social History Smoking Status: Current Every Day Smoker Substance Use Type: None - Medications Home Medications: Home Medications Medication Instructions Recorded Confirmed Last Taken Type Suboxone 8 mg-2 mg SL Film 0.5 tab PO TID 06/05/17 06/08/17 Unknown History Geodon 40 mg PO DAILY #30 06/07/17 06/08/17 Unknown Rx Cymbalta 60 mg PO DAILY #30 06/13/17 Unknown Rx Gabapentin 300 mg PO TID #90 06/13/17 Unknown Rx ED Physical Exam - General Limitations: No Limitations General appearance: alert, in no apparent distress - Head Head exam: Present: atraumatic, normocephalic - Eye Eye exam: Present: normal appearance - ENT ENT exam: Present: mucous membranes moist - Neck Neck exam: Present: normal inspection - Respiratory Respiratory exam: Present: normal lung sounds bilaterally. Absent: respiratory distress - Cardiovascular Cardiovascular Exam: Present: regular rate, normal rhythm. Absent: systolic murmur, diastolic murmur, rubs, gallop - GI/Abdominal GI/Abdominal exam: Present: soft, normal bowel sounds - Extremities Exam Extremities exam: Present: normal inspection - Back Exam Back exam: Present: normal inspection - Neurological Exam Neurological exam: Present: alert, oriented X3 - Psychiatric Psychiatric exam: Present: normal affect, normal mood - Skin Skin exam: Present: warm, dry, intact, normal color. Absent: rash ED Course Vital Signs 06/13/17 06/13/17 06/13/17 13:33 14:45 16:07 Temperature 98.8 F 98.3 F Pulse Rate 92 H 76 67 Respiratory 16 16 16 Rate Blood Pressure 158/71 Blood Pressure 129/78 130/80 [Left] O2 Sat by Pulse 97 100 100 Oximetry ED Medical Decision Making - Lab Data Result diagrams: 06/13/17 14:28 Laboratory Results - last 24 hr 06/13/17 06/13/17 06/13/17 14:28 14:28 17:03 WBC 3.3 L RBC 4.29 Hgb 12.3 Hct 37.0 MCV 86 MCH 29 MCHC 33 RDW 15.1 Plt Count 116 L Lymph % (Auto) 22.8 [place] % (Auto) 8.0 H Eos % (Auto) 1.2 Baso % (Auto) 0.6 Lymph # 0.7 L [place] # 0.3 Eos # 0.0 Baso # 0.0 Seg Neutrophils % 67.4 Seg Neutrophils # 2.2 Urine Color Yellow Urine Turbidity Clear Urine pH 6.0 Ur Specific [place] 1.016 Urine Protein 30 mg/dl Urine Glucose (UA) 50 Urine Ketones Neg Urine Blood Neg Urine Nitrite Neg Urine Bilirubin Neg Urine Urobilinogen < 2.0 Ur Leukocyte Esterase Neg Urine WBC (Auto) 1.0 Urine RBC (Auto) 1.0 U Epithel Cells (Auto) 1.0 Urine Mucus Few Urine Opiates Screen Urine Methadone Screen Ur Barbiturates Screen Ur Phencyclidine Scrn Ur Amphetamines Screen U Benzodiazepines Scrn Urine Cocaine Screen U Marijuana (THC) Screen Drugs of Abuse Note Plasma/Serum Alcohol < 0.01 06/13/17 17:03 WBC RBC Hgb Hct MCV MCH MCHC RDW Plt Count Lymph % (Auto) [place] % (Auto) Eos % (Auto) Baso % (Auto) Lymph # [place] # Eos # Baso # Seg Neutrophils % Seg Neutrophils # Urine Color Urine Turbidity Urine pH Ur Specific [place] Urine Protein Urine Glucose (UA) Urine Ketones Urine Blood Urine Nitrite Urine Bilirubin Urine Urobilinogen Ur Leukocyte Esterase Urine WBC (Auto) Urine RBC (Auto) U Epithel Cells (Auto) Urine Mucus Urine Opiates Screen Presumptive negative Urine Methadone Screen Presumptive negative Ur Barbiturates Screen Presumptive negative Ur Phencyclidine Scrn Presumptive negative Ur Amphetamines Screen Presumptive negative U Benzodiazepines Scrn Presumptive negative Urine Cocaine Screen Presumptive negative U Marijuana (THC) Screen Presumptive negative Drugs of Abuse Note Disclamer Plasma/Serum Alcohol - Medical Decision Making Patient here for mental health assessment. Plan have her evaluated by the mental health team. We'll medically clear with labs. Patient medically clear for psychiatric evaluation. Plan to get her to [facility] for further evaluation. Critical care attestation.: If time is entered above; I have spent that time in minutes in the direct care of this critically ill patient, excluding procedure time. ED Disposition Clinical Impression: Opioid dependence Disposition: DC-01 TO HOME OR SELFCARE Is pt being admited?: No Condition: Stable Additional Instructions: Patient medically clear for psychiatric evaluation. Referrals: PRIMARY CARE,MD [Primary Care Provider] - 3-5 Days
[2017-06-13 17:07] LABS: Urine Drugs of Abuse Note Disclamer
[2017-06-13 17:14] LABS: Bilirubin,Urine NEG (Negative); Blood,Urine NEG (Negative); Ketones,Urine NEG (Negative); Leukocyte Esterase,Urine NEG (Negative); Mucus,Urine FEW /HPF; Nitrite,Urine NEG (Negative); Urobilinogen,Urine < 2.0 mg/dL (<2.0)
[2017-06-13 18:35] VITALS: BP 125/85
== END 2017-06-13 18:36 | disposition home or self-care (01) ==
LOC: ED 13:30
DX: F11.20 Opioid dependence, uncomplicated (principal); I10 Essential (primary) hypertension; I50.9 Heart failure, unspecified; E11.9 Type 2 diabetes mellitus without complications; M19.90 Unspecified osteoarthritis, unspecified site; J44.9 Chronic obstructive pulmonary disease, unspecified; F17.200 Nicotine dependence, unspecified, uncomplicated; Z98.890 Other specified postprocedural states
CPT/HCPCS: 36415; 80307; 81001; 85025; 99283; G0480; 80320

== ENCOUNTER 2017-06-28 21:21 | Emergency (ER) | payer MEDICARE ==
[2017-06-28] MEDS ORDERED: PEPCID IV ONE (22:54)
[2017-06-28] MEDS ORDERED: APRESOLINE IV ONE (22:54)
[2017-06-28] MEDS ORDERED: CARAFATE PO ONE (22:55)
--- NOTE | 2017-06-28 22:55 | Emergency Department Report ---
ED Chest Pain HPI - General Chief Complaint: Chest Pain Stated Complaint: GENERAL WEAKNESS Time Seen by Provider: 06/28/17 22:38 Source: patient, EMS (ems notes not available at time of chart dictation), RN notes reviewed, old records reviewed Mode of arrival: Stretcher Limitations: No Limitations - History of Present Illness Initial Comments: This is a 72-year-old female. The patient has a past medical history of heart disease status post CABG, hypertension, diabetes, tobacco use. Patient is currently in a local psychiatric facility on a voluntary basics for detox from morphine and Xanax. The patient presents to the ER today with a complaint of bilateral lower extremity pain, which is consistent with her prior episodes of neuropathic pain. The pain is not a new, worsening or different. She also presents with central chest pain. The chest pain has been present for one week. The pain does not radiate to the back, arms and neck. There is no vomiting or diaphoresis. There is chronic shortness of breath which is not a new, worsened or different. The patient denies hematemesis and bright red blood per rectum, she denies cough and mucus production. She cannot describe exacerbating or relieving factors. The patient did endorse that she was unable to walk, however she is walking just fine in the emergency department upon my direct visual inspection. MD Complaint: chest pain -: Gradual Onset: during rest Pain Location: left chest Pain Radiation: none Severity: mild Severity scale (0 -10): 5 Quality: aching Consistency: intermittent Improves With: nothing Worsens With: nothing Treatments Prior to Arrival: none Aspirin use within the Past 7 Days: (1) Yes - Related Data Home Medications Medication Instructions Recorded Confirmed Last Taken Suboxone 8 mg-2 mg SL Film 0.5 tab PO TID 06/05/17 06/08/17 Unknown Previous Rx's Medication Instructions Recorded Last Taken Type Geodon 40 mg PO DAILY #30 06/07/17 Unknown Rx Cymbalta 60 mg PO DAILY #30 06/13/17 Unknown Rx Gabapentin 300 mg PO TID #90 06/13/17 Unknown Rx Albuterol Sulfate [Proair 90 mcg IH Q4HR PRN #2 [email or web address] 06/29/17 Unknown Rx Respiclick] Amlodipine Besylate [Norvasc] 2.5 mg PO DAILY #30 tab 06/29/17 Unknown Rx Aspirin [Adult Low Dose Aspirin EC] 81 mg PO QDAY #30 tablet. 06/29/17 Unknown Rx Allergies Allergy/AdvReac Type Severity Reaction Status Date / Time No Known Allergies Allergy Verified 06/13/17 13:33 Heart Score - HEART Score History: Slightly suspicious EKG: Non-specific Age: > 65 Risk factors: > 3 risk factors or hx of atherosclerotic disease Troponin: < normal limit HEART Score: 5 - Critical Actions Critical Actions: 4-6 pts:12-16.6% risk of adverse cardiac event. Should be admitted ED Review of Systems ROS: Stated complaint: GENERAL WEAKNESS Other details as noted in HPI Constitutional: malaise. denies: fever Eyes: denies: vision change ENT: denies: epistaxis Respiratory: see HPI Cardiovascular: chest pain Gastrointestinal: denies: vomiting Genitourinary: as per HPI Musculoskeletal: arthralgia, myalgia Skin: denies: lesions Neurological: denies: abnormal gait Psychiatric: denies: homicidal thoughts, suicidal thoughts ED Past Medical Hx - Past Medical History Previous Medical History?: Yes Hx Hypertension: Yes Hx Heart Attack/AMI: No Hx Congestive Heart Failure: Yes Hx Diabetes: Yes Hx Deep Vein Thrombosis: No Hx Pulmonary Embolism: No Hx Liver Disease: No Hx Arthritis: Yes (osteoarthritis) Hx Asthma: No Hx COPD: Yes Hx Tuberculosis: No Hx HIV: No - Surgical History Past Surgical History?: Yes Hx Coronary Stent: Yes Hx Open Heart Surgery: No Hx Pacemaker: No Hx Internal Defibrillator: No Hx Cholecystectomy: No Hx Appendectomy: No Hx Breast Surgery: No Additional Surgical History: hernia; CABG - Social History Smoking Status: Never Smoker Substance Use Type: Other - Medications Home Medications: Home Medications Medication Instructions Recorded Confirmed Last Taken Type Suboxone 8 mg-2 mg SL Film 0.5 tab PO TID 06/05/17 06/08/17 Unknown History Geodon 40 mg PO DAILY #30 06/07/17 06/08/17 Unknown Rx Cymbalta 60 mg PO DAILY #30 06/13/17 Unknown Rx Gabapentin 300 mg PO TID #90 06/13/17 Unknown Rx Albuterol Sulfate [Proair 90 mcg IH Q4HR PRN #2 [email or web address] 06/29/17 Unknown Rx Respiclick] Amlodipine Besylate [Norvasc] 2.5 mg PO DAILY #30 tab 06/29/17 Unknown Rx Aspirin [Adult Low Dose Aspirin EC] 81 mg PO QDAY #30 tablet. 06/29/17 Unknown Rx ED Physical Exam - General Limitations: No Limitations General appearance: alert, in no apparent distress - Head Head exam: Present: atraumatic, normocephalic - Eye Eye exam: Present: normal appearance, EOMI. Absent: nystagmus - ENT ENT exam: Present: normal exam, normal orophraynx, mucous membranes moist, normal external ear exam - Neck Neck exam: Present: normal inspection, full ROM. Absent: tenderness, meningismus - Respiratory Respiratory exam: Present: normal lung sounds bilaterally. Absent: respiratory distress, wheezes, rales, rhonchi, stridor, chest wall tenderness, accessory muscle use, decreased breath sounds, prolonged expiratory - Cardiovascular Cardiovascular Exam: Present: regular rate, normal rhythm, normal heart sounds. Absent: bradycardia, tachycardia, irregular rhythm, systolic murmur, diastolic murmur, rubs, gallop - GI/Abdominal GI/Abdominal exam: Present: soft, normal bowel sounds. Absent: distended, tenderness, guarding, rebound, rigid, pulsatile mass - Extremities Exam Extremities exam: Present: normal inspection, full ROM, normal capillary refill. Absent: pedal edema, joint swelling, calf tenderness - Back Exam Back exam: Present: normal inspection, full ROM. Absent: tenderness, CVA tenderness (R), CVA tenderness (L), muscle spasm, paraspinal tenderness, vertebral tenderness - Neurological Exam Neurological exam: Present: alert, oriented X3, normal gait, other (Extraocular movements intact. Tongue midline. No facial droop. Facial sensation intact to light touch in the V1, V2, V3 distribution bilaterally. 5 and 5 strength in 4 extremities.. Sensation is intact to light touch in 4 extremities.). Absent : motor sensory deficit - Psychiatric Psychiatric exam: Present: anxious. Absent: homicidal ideation, suicidal ideation - Skin Skin exam: Present: warm, dry, intact, normal color. Absent: rash ED Course Vital Signs 06/28/17 06/28/17 06/28/17 21:43 21:46 21:49 Temperature 98.4 F Pulse Rate 76 74 89 Respiratory 19 18 18 Rate Blood Pressure 206/104 206/104 O2 Sat by Pulse 100 Oximetry 06/28/17 06/28/17 06/28/17 22:00 22:16 22:30 Temperature Pulse Rate 79 75 79 Respiratory 19 20 15 Rate Blood Pressure 206/104 206/90 206/90 O2 Sat by Pulse 96 96 Oximetry 06/28/17 06/28/17 06/28/17 22:48 23:00 23:15 Temperature Pulse Rate 79 96 H Respiratory 20 14 Rate Blood Pressure 213/105 213/112 213/112 O2 Sat by Pulse 99 94 99 Oximetry 06/28/17 06/28/17 06/29/17 23:30 23:46 01:54 Temperature Pulse Rate 104 H 107 H Respiratory 25 H 28 H Rate Blood Pressure 186/121 186/121 186/121 O2 Sat by Pulse 100 98 99 Oximetry 06/29/17 06/29/17 06/29/17 02:00 02:30 03:00 Temperature Pulse Rate 98 H Respiratory 18 Rate Blood Pressure 191/94 191/94 162/78 O2 Sat by Pulse 97 98 98 Oximetry 06/29/17 03:30 Temperature Pulse Rate Respiratory Rate Blood Pressure 142/66 O2 Sat by Pulse 96 Oximetry - Reevaluation(s) Reevaluation #1: 06/29/17 01:08 Differential diagnosis: GERD, gastritis, pneumonia, acute coronary syndrome, reflux Assessment and plan: 72-year-old female with chest pain for one week. She is afebrile, with reassuring vital signs with the exception of hypertension which has been present in the past. Her EKG demonstrates premature ventricular contractions, otherwise morphologically unremarkable with the exception of left ventricular hypertrophy/high left ventricular voltage. I appreciate that the patient does score high on the heart score, however there is a significant anxiety component, and with one week of chest pain, I think it is unlikely that the patient would benefit from admission to the hospital for acute coronary syndrome risk stratification. X-ray the chest is nonspecific does not have symptoms to suggest pneumonia, CT scan of the chest is pending. Low risk by well's criteria, however d-dimer is elevated, nuclear medicine study is also pending. She is given gabapentin for her chronic lower extremity neuropathic pain, there is no lower stomach swelling , there is no edema, I have no suspicion for DVT at this time. Reevaluation #2: 06/29/17 03:56 Patient is observed in the ER for a prolonged period of time without clinical decompensation. A nuclear medicine studies found to be low probability for pulmonary embolus. Noncontrast CT scan of the chest demonstrates emphysema, possible bronchiectasis , superimposed bibasilar groundglass opacity. Troponin negative 2, blood pressure still hypertensive but improved, no acute distress at this time. Given her current history and physical, her physical exam findings, I do not have a suspicion for pneumonia at this time, she is not hypoxic, she does not have rales or rhonchi. Patient is instructed to follow- up with her outpatient projector operator for these incidental findings. Patient is instructed to follow-up with the cardiology team that recently evaluated her earlier on this year. She will be given names, phone numbers, addresses. She' ll be started on low-dose antihypertensive medication. SUNIL score - Sunil Score Age > 65: (1) Yes Aspirin use within the Past 7 Days: (1) Yes 3 or more CAD Risk Factors: (1) Yes 2 or more Angina events in past 24 hrs: (0) No Known CAD with more than 50% Stenosis: (0) No Elevated Cardiac Markers: (0) No ST Deviation Greater than 0.5mm: (0) No SUNIL Score: 3 ED Medical Decision Making - Lab Data Result diagrams: 06/28/17 22:57 06/28/17 22:15 Vital Signs 06/28/17 21:49 Temperature 98.4 F Pulse Rate 89 Respiratory 18 Rate Blood Pressure 206/104 O2 Sat by Pulse 100 Oximetry Lab Results 06/28/17 06/28/17 06/28/17 Range/Units 22:15 22:15 22:15 WBC (4.5-11.0) K/mm3 RBC (3.65-5.03) M/mm3 Hgb (10.1-14.3) gm/dl Hct (30.3-42.9) % MCV (79-97) fl MCH (28-32) pg MCHC (30-34) % RDW (13.2-15.2) % Plt Count (140-440) K/mm3 Lymph % (Auto) [place] % (Auto) Eos % (Auto) Baso % (Auto) Lymph # [place] # Eos # Baso # Seg Neutrophils % Seg Neutrophils # PT 14.1 (12.2-14.9) Sec. INR 1.10 (0.87-1.13) APTT 20.5 L (24.2-36.6) Sec. D-Dimer 1697 H (0-234) ng/mlDDU Sodium 140 (137-145) mmol/L Potassium 3.3 L (3.6-5.0) mmol/L Chloride 102.1 (98-107) mmol/L Carbon Dioxide 25 (22-30) mmol/L Anion Gap 16 mmol/L BUN 20 H (7-17) mg/dL Creatinine 1.3 H (0.7-1.2) mg/dL Estimated GFR 49 ml/min BUN/Creatinine Ratio 15.38 % Glucose 171 H (65-100) mg/dL Calcium 9.2 (8.4-10.2) mg/dL Total Bilirubin 0.50 (0.1-1.2) mg/dL AST 52 H (5-40) units/L ALT 21 (7-56) units/L Alkaline Phosphatase 102 (35-129) units/L Troponin T < 0.010 (0.00-0.029) ng/mL Total Protein 8.0 (6.3-8.2) g/dL Albumin 3.9 (3.9-5) g/dL Albumin/Globulin Ratio 1.0 % 06/28/17 06/29/17 Range/Units 22:57 00:23 WBC 5.3 (4.5-11.0) K/mm3 RBC 4.51 (3.65-5.03) M/mm3 Hgb 12.5 (10.1-14.3) gm/dl Hct 39.1 (30.3-42.9) % MCV 87 (79-97) fl MCH 28 (28-32) pg MCHC 32 (30-34) % RDW 15.4 H (13.2-15.2) % Plt Count 100 L (140-440) K/mm3 Lymph % (Auto) Recreation Coordinator [place] % (Auto) Recreation Coordinator Eos % (Auto) Recreation Coordinator Baso % (Auto) Recreation Coordinator Lymph # Recreation Coordinator [place] # Recreation Coordinator Eos # Recreation Coordinator Baso # Recreation Coordinator Seg Neutrophils % Recreation Coordinator Seg Neutrophils # Recreation Coordinator PT (12.2-14.9) Sec. INR (0.87-1.13) APTT (24.2-36.6) Sec. D-Dimer (0-234) ng/mlDDU Sodium (137-145) mmol/L Potassium (3.6-5.0) mmol/L Chloride (98-107) mmol/L Carbon Dioxide (22-30) mmol/L Anion Gap mmol/L BUN (7-17) mg/dL Creatinine (0.7-1.2) mg/dL Estimated GFR ml/min BUN/Creatinine Ratio % Glucose (65-100) mg/dL Calcium (8.4-10.2) mg/dL Total Bilirubin (0.1-1.2) mg/dL AST (5-40) units/L ALT (7-56) units/L Alkaline Phosphatase (35-129) units/L Troponin T < 0.010 (0.00-0.029) ng/mL Total Protein (6.3-8.2) g/dL Albumin (3.9-5) g/dL Albumin/Globulin Ratio % - EKG Data -: EKG Interpreted by Me EKG shows normal: sinus rhythm Rate: normal - EKG Data Interpretation: unchanged when compared t 06/29/17 03:58 EKG #1 demonstrates sinus, left ventricular hypertrophy, 67 bpm, normal axis, no STEMI, appears unchanged when compared to prior. EKG #2 appears unchanged from prior. Atrial enlargement noted, not consistent with STEMI. - Radiology Data Radiology results: report reviewed, image reviewed interpreted by me: Nuclear medicine study is low probability X-ray of the chest demonstrates normal heart size, aortic calcifications, possible hiatal hernia, coarse interstitial prominence and mild peribronchial thickening, left lower lobe linear opacity, may be atelectasis or pneumonia, convex opacity overlying the right lower thorax, may be related to overlying soft tissues, cannot exclude pleural or parenchymal abnormality. CT scan of the chest interpretation is reviewed. Multiple incidental findings noted. Critical care attestation.: If time is entered above; I have spent that time in minutes in the direct care of this critically ill patient, excluding procedure time. ED Disposition Clinical Impression: Chest pain, Peripheral neuropathy, Hypertension Disposition: - TO HOME OR SELFCARE Is pt being admited?: No Does the pt Need Aspirin: No Condition: Stable Instructions: Chest Pain (ED), Hypertension (ED) Additional Instructions: Continue current outpatient medications. Take the aspirin, amlodipine medication as directed. Take the albuterol medication as needed for cough, wheezing, shortness of breath. Follow up with her primary care doctor or manager business management within the next 2 weeks. please note that blood pressure was very elevated. This needs to be followed up by a primary care doctor or manager business management as recommended. Not following up as recommended and taking blood pressure medication may result in long-term complications such as heart disease , heart attack, stroke, disability. CT scan of the chest demonstrated emphysema. Follow up with a lung specialist within the next 6 weeks. Return to the ER right away with new pain, worsened pain, migration of pain, fevers, chills, lethargy, irritability, projectile vomiting, change in mental status, confusion, inability to tolerate liquid feeds. Prescriptions: Albuterol Sulfate [Proair Respiclick] 90 mcg IH Q4HR PRN #2 aer.[email or web address] PRN Reason: Wheezing Amlodipine Besylate [Norvasc] 2.5 mg PO DAILY #30 tab Aspirin [Adult Low Dose Aspirin EC] 81 mg PO QDAY #30 tablet. Referrals: PRIMARY CARE, [Primary Care Provider] - 3-5 Days BAY CASE MD [Staff Physician] - 3-5 Days COTY MENDES MD [Staff Physician] - 3-5 Days SALLY FISHER MD [Staff Physician] - 3-5 Days
[2017-06-28 22:59] LABS: INR 1.1 (0.87-1.13); Partial Thromboplastin Time 20.5 Sec. (24.2-36.6)
[2017-06-28 23:04] LABS: Alanine Aminotransferase 21 units/L (7-56); Albumin 3.9 g/dL (3.9-5); Alkaline Phosphatase 102 units/L (35-129); Anion Gap 16 mmol/L; BUN/Creatinine Ratio 15.38; Blood Urea Nitrogen 20 mg/dL (7-17); Calcium 9.2 mg/dL (8.4-10.2); Carbon Dioxide 25 mmol/L (22-30); Chloride 102.1 mmol/L (98-107); Glucose 171 mg/dL (65-100); Potassium 3.3 mmol/L (3.6-5.0); Sodium 140 mmol/L (137-145)
[2017-06-28 23:10] LABS: Hematocrit 39.1 % (30.3-42.9); Hemoglobin 12.5 gm/dl (10.1-14.3); Mean Corpuscular HGB Conc 32 % (30-34); Mean Corpuscular Hemoglobin 28 pg (28-32); Mean Corpuscular Volume 87 fl (79-97); Platelet Count 100 K/mm3 (140-440); Red Blood Count 4.51 M/mm3 (3.65-5.03); Red Cell Distribution Width 15.4 % (13.2-15.2); White Blood Count 5.3 K/mm3 (4.5-11.0)
--- NOTE | 2017-06-29 00:10 | XRay Report ---
FINAL REPORT PROCEDURE: XR CHEST 1V AP TECHNIQUE: Chest radiograph anteroposterior view. CPT 89449 HISTORY: Chest pain. COMPARISON: Chest radiograph dated 06/05/2017 FINDINGS: Heart: The heart size is top-normal. Mediastinum/Vessels: Aortic tortuosity and calcification. Subtle retrocardiac convexity. Lungs/Pleural space: Coarse interstitial prominence, unchanged. Mild peribronchial thickening, unchanged. Convex opacity overlies the right lateral lower thorax. Mild left lower lobe linear opacities. Symmetric biapical pleural thickening. Bony thorax: Osteopenia. Sternotomy. Degenerative changes of the spine. Life support devices: None. IMPRESSION: Heart size top-normal. Aortic calcification tortuosity. Subtle retrocardiac convexity, consider hiatal hernia. Stable coarse interstitial prominence and mild peribronchial thickening. Mild left lower lobe linear opacity, consider atelectasis or pneumonia. Convex opacity overlies right lower thorax, could be related to overlying soft tissues, but cannot exclude pleural or parenchymal abnormality. Recommend PA and lateral chest radiograph to begin further characterization if there is continued clinical concern.
[2017-06-29] MEDS ORDERED: NEURONTIN PO ONE (00:15)
--- NOTE | 2017-06-29 01:19 | Cat Scan Report ---
FINAL REPORT PROCEDURE: CT CHEST WO CON TECHNIQUE: Computerized axial tomography of the chest was performed without contrast material. This study is performed without intravenous contrast and the sensitivity for pathology, including neoplasms, adenopathy, abscess, pulmonary embolism and aortic dissection, is reduced. HISTORY: Chest pain. COMPARISON: Chest radiograph dated 06/28/2017. TECHNICAL QUALITY: Satisfactory. FINDINGS: Heart and pericardium: Mild cardiomegaly. Coronary artery bypass grafting. Moderate coronary artery disease of the [place] arteries. Thoracic aorta: Moderate atherosclerosis. Pulmonary vasculature: Normal. Lymph nodes: Small axillary and mediastinal lymph nodes. Lungs: Biapical scarring. Hyperinflation. Moderate centrilobular emphysema. Bibasilar interlobular septal thickening with mild bronchial wall thickening and possible bronchiectasis. This is slightly nodular in the left lower lobe measuring up to 6.8 millimeters. There is superimposed bibasilar ground-glass opacity. Pleural space: No effusion, thickening, or pneumothorax. Musculoskeletal structures: Mild levoscoliosis. Exaggeration of thoracic kyphosis. Multilevel disc space narrowing osteophytes. Mild osteopenia. Sternotomy. Upper abdominal structures: Scattered pancreatic calcifications. Small hiatal hernia. Other: Moderately enlarged heterogeneous right lobe of the thyroid gland with calcification. There is intrathoracic extension and mild mass effect on the adjacent trachea causing mild leftward tracheal deviation. Clips in the left breast IMPRESSION: Mild cardiomegaly with coronary artery disease. Moderate atherosclerosis. Biapical scarring with hyperinflation and moderate centrilobular emphysema. Bibasilar opacities with bronchial wall thickening and possible mild bronchiectasis. Consider atelectasis, also consider pneumonitis. Findings slightly nodular in the left lower lobe. Consider radiographic followup. Mild adenopathy may be reactive. Small pancreatic calcifications, may be vascular but consider chronic pancreatitis. Small hiatal hernia. Moderately enlarged heterogeneous right lobe of the thyroid gland with calcification and mild mass effect on the trachea causing mild leftward tracheal deviation. Consider thyroid ultrasound.
[2017-06-29 01:30] LABS: Basophils % (Manual) 0 % (0.0-1.8); Blastocytes % (Manual) 0 %; Eosinophils % (Manual) 0 % (0.0-4.3)
[2017-06-29 01:31] LABS: Anisocytosis 1+; Diff Status Complete; Ovalocytes Few; Platelet Estimate Consistent w Auto
--- NOTE | 2017-06-29 03:31 | Nuclear Medicine Report ---
FINAL REPORT PROCEDURE: NM LUNG SCAN PERF/VENT TECHNIQUE: Five mCi Tc-99m MAA was injected IV for pulmonary perfusion imaging in multiple projections. Fifteen mCi xenon 133 gas was inhaled for pulmonary ventilation imaging in multiple projections. Injection site: RIGHT antecubital fossa. CPT 45267 HISTORY: cp COMPARISON: Chest radiograph of the same date FINDINGS: Perfusion: No defects . Ventilation: No defects . IMPRESSION: Normal Examination
[2017-06-29 04:49] VITALS: BP 142/66
== END 2017-06-29 04:30 | disposition home or self-care (01) ==
LOC: ED 21:21
DX: R07.89 Other chest pain (principal); G62.9 Polyneuropathy, unspecified; I10 Essential (primary) hypertension; I50.9 Heart failure, unspecified; M19.90 Unspecified osteoarthritis, unspecified site; J44.9 Chronic obstructive pulmonary disease, unspecified
CPT/HCPCS: 36415; 71010; 71250; 78582; 80053; 84484; 85007; 85025; 85379; 85610; 85730; 93005; 93010; 96374; 96375; 99285; A9540; A9558; J0360